=== PATIENT | female | born 1945 | race African-American/Black ===

== ENCOUNTER 2018-01-24 11:31 | Day surgery (SDC) | payer MEDICARE ==
[~2018-01-24 11:31] MED LIST: Acetaminophen TAB* 325 MG PO PRN; Buffered Lidocaine 0.9% SYRIN* 5 ML/SYR SYRINGE INTRADERM ONE
[2018-01-24] MEDS ORDERED: Lidocaine 1%* 5 ML VIAL ONE (13:51)
[2018-01-24] MEDS ORDERED: Phenylephrine 2.5% OPTH.SOL* 2 ML BTL ONE (13:51)
[2018-01-24] MEDS ORDERED: acetaZOLAMIDE TAB* 250 MG ONE (13:51)
[2018-01-24] MEDS ORDERED: Povidone Iodine 5% OPTH* 30 ML BTL ONE (13:51)
[2018-01-24] MEDS ORDERED: Ketorolac 0.5% OPHTH (NF) 0.5 % 5 ML BTL ONE (13:51)
[2018-01-24] MEDS ORDERED: Lidocaine 2% EPI 1:200000 MPF*10-20 ML VIAL ONE (13:51)
[2018-01-24] MEDS ORDERED: Cyclopentolate 1% OPTH.SOL* 2 ML BTL ONE (13:51)
[2018-01-24] MEDS ORDERED: Proparacaine 0.5% OPHTH.SOL* 15 ML BTL ONE (13:51)
[2018-01-24] MEDS ORDERED: Neomycin/Polymy/Dex OPTH.SUSP* MAXITROL 0.1% 5 ML ONE (13:51)
[2018-01-24] MEDS ORDERED: fentaNYL* 50 MCG/ML 2 ML VIAL (100 MCG VIAL) ONE (13:59)
[2018-01-24] MEDS ORDERED: Midazolam* 1 MG/ML 2 ML VIAL (2 MG) ONE (13:59)
[2018-01-24 14:57] VITALS: BP 155/65
--- NOTE | 2018-01-24 15:48 | OP ---
DATE OF OPERATION: 01/24/2018. DATE OF : 1945. SURGEON: Jeet Pena M.D. PREOPERATIVE DIAGNOSIS: Cataract right eye. POSTOPERATIVE DIAGNOSIS: Cataract right eye. OPERATIVE PROCEDURE: Extracapsular cataract extraction with intraocular lens implant right eye. PROCEDURE: The patient was brought to the operating room after being given 1/2% Alcaine with epineph rine drops in the preoperative area. The eye was prepped and draped in the usual sterile fashion. S terile drape and eyelid speculum were placed. Again, topical 1/2% Alcaine with epinephrine was given . A paracentesis incision was made at the 9 o'clock position with the No.75 blade. Clear cornea inc ision 2.2 x 2.2-mm was created at the 12 o'clock position starting at the anterior limbus using the 2 .2-mm keratome. The anterior chamber was irrigated with 0.4 mL of 1% non-preservative intracameral l idocaine and filled with DisCoVisc. A capsulorrhexis was completed using the cystotome and the Utrat a forceps. Hydrodissection was performed with balanced salt solution. The lens nucleus was removed w ith the Phacoemulsification handpiece without incident. Cortex was removed with the irrigation-aspir ation handpiece. The capsular bag was re-inflated using DisCoVisc and an [id number] 20 implant was inser harshad with the shooter. The irrigation-aspiration handpiece was used to remove all residual DisCoVisc. The eye was refilled with balanced salt solution and the wound checked and found to be watertight. Topical Maxitrol drops were given. [id number]/[facility] #: [id number]
== END 2018-01-24 15:11 | disposition home or self-care (01) ==
LOC: OREAST 11:31
PROVIDERS: ATTEND Specialist
DX: H25.811 Combined forms of age-related cataract, right eye (principal); H40.033 Anatomical narrow angle, bilateral; G70.00 Myasthenia gravis without (acute) exacerbation; H04.123 Dry eye syndrome of bilateral lacrimal glands; Z87.891 Personal history of nicotine dependence; R01.1 Cardiac murmur, unspecified; K21.9 Gastro-esophageal reflux disease without esophagitis; K58.9 Irritable bowel syndrome, unspecified; M19.90 Unspecified osteoarthritis, unspecified site; F32.9 Major depressive disorder, single episode, unspecified
CPT/HCPCS: A9270-GY; J2250; J3010; V2632

== ENCOUNTER 2018-02-07 12:08 | Day surgery (SDC) | payer MEDICARE ==
[~2018-02-07 12:08] MED LIST changes: -Acetaminophen TAB* 325 MG PO PRN
[2018-02-07] MEDS ORDERED: Propofol* 10 MG/ML 20 ML BTL IV PUSH ONE (14:46)
[2018-02-07] MEDS ORDERED: Lidocaine 2% PF * 5 ML VIAL ONE (14:46)
[2018-02-07] MEDS ORDERED: Phenylephrine 2.5% OPTH.SOL* 2 ML BTL ONE (15:03)
[2018-02-07] MEDS ORDERED: Cyclopentolate 1% OPTH.SOL* 2 ML BTL ONE (15:03)
[2018-02-07] MEDS ORDERED: Ketorolac 0.5% OPHTH (NF) 0.5 % 5 ML BTL ONE (15:03)
[2018-02-07] MEDS ORDERED: Proparacaine 0.5% OPHTH.SOL* 15 ML BTL ONE (15:03)
[2018-02-07] MEDS ORDERED: Neomycin/Polymy/Dex OPTH.SUSP* MAXITROL 0.1% 5 ML ONE (15:03)
[2018-02-07] MEDS ORDERED: Lidocaine 2% EPI 1:200000 MPF*10-20 ML VIAL ONE (15:03)
[2018-02-07] MEDS ORDERED: acetaZOLAMIDE TAB* 250 MG ONE (15:03)
[2018-02-07] MEDS ORDERED: Lidocaine 1%* 5 ML VIAL ONE (15:03)
[2018-02-07] MEDS ORDERED: Povidone Iodine 5% OPTH* 30 ML BTL ONE (15:03)
[2018-02-07 15:11] VITALS: BP 131/79
--- NOTE | 2018-02-07 16:27 | OP ---
DATE OF OPERATION: 02/07/2018. DATE OF : 1945. SURGEON: Jeet Pena M.D. PREOPERATIVE DIAGNOSIS: Cataract left eye. POSTOPERATIVE DIAGNOSIS: Cataract left eye. OPERATIVE PROCEDURE: Extracapsular cataract extraction with intraocular lens implant left eye. PROCEDURE: The patient was brought to the operating room after being given 1/2% Alcaine with epineph rine drops in the preoperative area. The eye was prepped and draped in the usual sterile fashion. S terile drape and eyelid speculum were placed. Again, topical 1/2% Alcaine with epinephrine was given . A paracentesis incision was made at the 3 o'clock position with the No.75 blade. Clear cornea inc ision 2.2 x 2.2-mm was created at the 6 o'clock position starting at the anterior limbus using the 2. 2-mm keratome. The anterior chamber was irrigated with 0.4 mL of 1% non-preservative intracameral li docaine and filled with DisCoVisc. A capsulorrhexis was completed using the cystotome and the Utrata forceps. Hydrodissection was performed with balanced salt solution. The lens nucleus was removed wi th the Phacoemulsification handpiece without incident. Cortex was removed with the irrigation-aspira tion handpiece. The capsular bag was re-inflated using DisCoVisc and an SN60WF 19.5 implant was inse rted with the shooter. The irrigation-aspiration handpiece was used to remove all residual DisCoVisc . The eye was refilled with balanced salt solution and the wound checked and found to be watertight. Topical Maxitrol drops were given. [id number]/[facility] #: [id number]
== END 2018-02-07 15:15 | disposition home or self-care (01) ==
LOC: OREAST 12:08
PROVIDERS: ATTEND Specialist
DX: H25.812 Combined forms of age-related cataract, left eye (principal); H40.033 Anatomical narrow angle, bilateral; G70.00 Myasthenia gravis without (acute) exacerbation; H04.123 Dry eye syndrome of bilateral lacrimal glands; I10 Essential (primary) hypertension; K21.9 Gastro-esophageal reflux disease without esophagitis; K58.9 Irritable bowel syndrome, unspecified; E05.00 Thyrotoxicosis with diffuse goiter without thyrotoxic crisis or storm; R06.02 Shortness of breath; J45.909 Unspecified asthma, uncomplicated; M19.90 Unspecified osteoarthritis, unspecified site
CPT/HCPCS: A9270-GY; J2704; V2632

== ENCOUNTER 2018-07-15 10:43 | Emergency (ER) | payer MEDICARE ==
[2018-07-15 11:56] VITALS: BP 188/97
--- NOTE | 2018-07-15 12:15 | UC ---
Eye Complaint HPI - HPI Summary HPI Summary: Patient is a 72 year old female, who present today to the urgent care with for left eye irritation and redness since morning today Also noticed some crustiness around eye when woke up. She felt that she might get a headache but she did not get one and denies any headache right now. She does have a history of glaucoma and had laser surgery done for that. Denies any contact lens use She also reports that she had had recent ear infections and pneumonia - was treated, has lingering cough which is productive of phlegm now. She was treated twice for her ear infection And finished her antibiotics 2 weeks ago. Continues to have cough productive of phlegm. No sick contacts . No skin rash. Denies any fever, chills, chest pain or shortness of breath . No diaphoresis. Denies any abdominal pain , nausea or vomiting , diarrhea or constipation. - History of Current Complaint Chief Complaint: UCEye Stated Complaint: L EYE IRRITATION, HEADACHE Time Seen by Provider: 07/15/18 11:59 Hx Obtained From: Patient Pain Intensity: 0 - Allergies/Home Medications Allergies/Adverse Reactions: Allergies Allergy/AdvReac Type Severity Reaction Status Date / Time codeine Allergy Dizziness Verified 07/15/18 11:39 HOSPITAL SHEETS Allergy See Comment Uncoded 02/07/18 12:35 TAPE Allergy See Comment Uncoded 02/07/18 12:35 Home Medications: Home Medications Ascorbic Acid TAB* [Vitamin C TAB*] 4,000 mg PO DAILY 07/15/18 [History Confirmed 07/15/18] Epinastine 0.05% OPHTH(NF) [Elestat 0.05% OPTH PAIGE (NF)] 1 drop BOTH EYES BID [History Confirmed 07/15/18] L.acidoph,Paracasei, B.lactis [Probiotic] 1 each PO DAILY 07/15/18 [History Confirmed 07/15/18] Potassium Chlor TAB* [Klor Con ER TAB*] 7.5 meq PO DAILY 07/15/18 [History Confirmed 07/15/18] PMH/Surg Hx/FS Hx/Imm Hx - Additional Past Medical History Additional PMH: Hypertension thyroid disorder Asthma as a child Previously Healthy: Yes - Surgical History Surgical History: Yes Surgery Procedure, Year, and Place: 1979 C SECTION, [place]. 2002 LUMBAR DISCECTOMY L5/S1 [place]. 1973 [place]SI[place]OMY, [place]. 1975 LAPOROTOMY FOR CYST ON FALLOPIAN TUBE,. 2015 HYSTERECTOMY/ BLADDER SLING [place]. [facility] [place]. 2018 - bilat cataract removal. - Family History Known Family History: Positive: Hypertension - Social History Alcohol Use: None Alcohol Amount: ONE DRINK A MONTH Substance Use Type: None Smoking Status (MU): Former Smoker Type: Cigarettes Amount Used/How Often: LESS THEN 1 PPD 35 YRS Have You Smoked in the Last Year: No When Did the Patient Quit Smoking/Using Tobacco: 1996 Review of Systems All Other Systems Reviewed And Are Negative: Yes Constitutional: Positive: Negative Skin: Positive: Negative Eyes: Positive: Drainage - Left eye, Eye Redness - Left eye ENT: Positive: Negative Respiratory: Positive: Cough - Cough productive of green phlegm. Negative: Shortness Of Breath Cardiovascular: Positive: Negative Gastrointestinal: Positive: Negative Genitourinary: Positive: Negative Motor: Positive: Negative Neurovascular: Positive: Negative Musculoskeletal: Positive: Negative Neurological: Positive: Negative Psychological: Positive: Negative Is Patient Immunocompromised?: No Physical Exam - Summary Physical Exam Summary: Physical Exam: Const: Appears well. No signs of apparent distress present. Alert and oriented x 3. Musculo: Walks with a normal gait. Head/Face: Atraumatic, normocephalic on inspection. Eyes: EOMI and PERRLA in both eyes. Left eye with conjunctival erythema without any significant discharge. ENT: Hearing normal, TM normal appearing bilaterally . No pharyngeal erythema or exudates, no lymphadenopathy noted Respiratory: Respirations are unlabored. Lungs -air entry equal, rhonchi noted bilaterally CVS: Regular rate and Rhythm, S1S2 normal , no murmurs identified. Extremities: Peripheral circulation is grossly normal. Pulses 2+ Abdomen : Soft non tender , nondistended , Bowel sounds present . No guarding , rebound tenderness or rigidity noted. Skin: No lesions or rash located on the upper extremities or on the lower extremities. Neuro: Cranial nerves II to XII intact, motor and sensory intact. DTR Intact bilaterally. Mood is normal. Affect is normal. Vital Signs: Initial Vital Signs Temp 97.5 F 07/15/18 11:46 Pulse 63 07/15/18 11:46 Resp 18 07/15/18 11:46 BP 188/97 07/15/18 11:46 Pulse Ox 96 07/15/18 11:46 Eye Complaint Course/Dx - Course Course Of Treatment: During the visit today, we discussed the findings and further plan. I will prescribe the medication to the pharmacy , Polytrim eyedrops. She said that she has Polytrim eyedrops that has not been used given to her by her learning support teacher so she might not have to further, it was E prescribed to the pharmacy. As her lungs don't sound great and she also has cough productive of phlegm, plan to treat it with Z-Melvin. Patient expressed understanding . - Differential Dx/Diagnosis Provider Diagnosis: Conjunctivitis, left eye, Pneumonia Discharge - Sign-Out/Discharge Documenting (check all that apply): Patient Departure All imaging exams completed and their final reports reviewed: No Studies - Discharge Plan Condition: Stable Disposition: HOME Prescriptions: Azithromyxin MELVIN (NF) [Z-Melvin (Zithromax) 250 mg tabs #6] 2 tab PO .TODAY, THEN 1 DAILY #6 tab Polymyx/Trimethoprim OPTH* [Polytrim OPHTH*] 1 drop LEFT EYE Q6H 5 Days #1 btl Patient Education Materials: Pneumonia (ED), Conjunctivitis (ED) Referrals: Vidhi Chan MD [Primary Care Provider] - 1 Week Additional Instructions: Please start taking the medication as prescribed to the pharmacy . Follow up with your primary care doctor in 1 week. Please follow up with ophthalmology if no improvement within a week Patients blood pressure slightly high in Urgent care today , plan follow up with PCP for better control Return to Urgent care / ER if symptoms get worse. - Billing Disposition and Condition Condition: STABLE Disposition: Home
== END 2018-07-15 12:35 | disposition home or self-care (01) ==
LOC: UCEAST 10:43
DX: J18.9 Pneumonia, unspecified organism (principal); H10.9 Unspecified conjunctivitis; I10 Essential (primary) hypertension; Z88.5 Allergy status to narcotic agent; Z91.048 Other nonmedicinal substance allergy status; Z87.891 Personal history of nicotine dependence
CPT/HCPCS: 99212; G0463

== ENCOUNTER 2018-07-20 13:27 | Emergency (ER) | payer MEDICARE ==
--- NOTE | 2018-07-20 13:39 | UC ---
Respiratory Complaint HPI - HPI Summary HPI Summary: 72 yo female presents with SOB and wheezing. She tells me that she had a cough and slight wheezing in April that lasted until early May at which time she saw her PCP for an appt and was dx'd with walking PNA. She was placed on anbx and felt better, but still had a persistent cough. She has seen her PCP twice since that time and has been told that the cough will "take time" to go away due to her age. She was seen here on 07/15 for an eye issue and noted at that time that her lungs had diffuse rhonchi and was placed on a zpak for this. She completed the zpak yesterday and has had no change in her wheezing or coughing. She has an albuterol inhaler that she uses with mild relief, but does not last long. Denies fever, chills, sinus symptoms, sore throat, chest pain, palpitations, abdominal pain, n/v. - History of Current Complaint Stated Complaint: SOB Time Seen by Provider: 07/20/18 13:39 Hx Obtained From: Patient Onset/Duration: Gradual Onset Timing: Constant Severity Initially: Mild Severity Currently: Mild Pain Intensity: 2 Pain Scale Used: 0-10 Numeric Character: Cough: Nonproductive - Allergies/Home Medications Allergies/Adverse Reactions: Allergies Allergy/AdvReac Type Severity Reaction Status Date / Time codeine Allergy Dizziness Verified 07/15/18 11:39 HOSPITAL SHEETS Allergy See Comment Uncoded 02/07/18 12:35 TAPE Allergy See Comment Uncoded 02/07/18 12:35 Home Medications: Home Medications Albuterol HFA INHALER* [Ventolin HFA Inhaler*] 2 puff INH Q6H PRN 07/20/18 [ History Confirmed 07/20/18] PMH/Surg Hx/FS Hx/Imm Hx - Additional Past Medical History Additional PMH: Allergies Glaucoma - Surgical History Surgical History: Yes Surgery Procedure, Year, and Place: 1979 C SECTION, [place]. 2002 LUMBAR DISCECTOMY L5/S1 [place]. 1972 TONSILECTOMY, [place]. 1975 LAPOROTOMY FOR CYST ON FALLOPIAN TUBE,. 2014 HYSTERECTOMY/ BLADDER SLING [place]. [address] [place] SURGERY FOR [place] [address] [place]'S OFFICE. 2018 - bilat cataract removal. - Family History Known Family History: Positive: Hypertension - Social History Lives: With Family Alcohol Use: None Alcohol Amount: ONE DRINK A MONTH Substance Use Type: None Smoking Status (MU): Former Smoker Type: Cigarettes Amount Used/How Often: LESS THEN 1 PPD 35 YRS Have You Smoked in the Last Year: No When Did the Patient Quit Smoking/Using Tobacco: 1996 Review of Systems All Other Systems Reviewed And Are Negative: Yes Constitutional: Positive: Negative Skin: Positive: Negative Eyes: Positive: Negative ENT: Positive: Negative Respiratory: Positive: Shortness Of Breath, Cough Cardiovascular: Positive: Negative Gastrointestinal: Positive: Negative Neurovascular: Positive: Negative Neurological: Positive: Negative Psychological: Positive: Negative Physical Exam - Summary Physical Exam Summary: GENERAL: NAD. WDWN. No pain distress. SKIN: No rashes, sores, lesions, or open wounds. HEENT: Head: AT/NC Eyes: Conjunctiva clear without inflammation or discharge. Ears: Hearing grossly normal. TMs intact, no bulging, erythema, or edema. Nose: Nasal mucosa pink and moist. NTTP maxillary and frontal sinus. Throat: Posterior oropharynx without exudates, erythema, or tonsillar enlargement. Uvula midline. NECK: Supple. Nontender. No lymphadenopathy. CHEST: Moderate to severe wheezing throughout with scattered rhonchi. No accessory muscle use. Breathing comfortably and in no distress. CV: RRR. Without m/r/g. Pulses intact. Cap refill <2seconds NEURO: Alert. PSYCH: Age appropriate behavior. Triage Information Reviewed: Yes Vital Signs: Vital Signs: Temp Pulse Resp BP Pulse Ox 98.2 F 72 18 186/92 96 07/20/18 13:38 07/20/18 13:38 07/20/18 13:38 07/20/18 13:38 07/20/18 13:38 Vital Signs Reviewed: Yes Re-Evaluation - Re-Evaluation First Eval Re-Evaluation Time: 15:22 Change: Improved Comment: Improved breathing. Less wheezing. s/p duoneb Second Eval Re-Evaluation Time: 15:56 Change: Improved Comment: Improved s/p albuterol neb Respiratory Course/Dx - Course Course Of Treatment: CXR: IMPRESSION: NO ACTIVE CARDIOPULMONARY DISEASE. Duoneb: improved s/p. Albuterol nebulizer: further improvment s/p with less wheezing. Pt was also given dexamethasone in the clinic. Suspect asthma exacerbation vs bronchitis. Will start her with prednisone and have her keep her f/u with her PCP next week for a recheck - Differential Dx/Diagnosis Provider Diagnosis: Bronchitis Discharge - Sign-Out/Discharge Documenting (check all that apply): Patient Departure All imaging exams completed and their final reports reviewed: Yes - Discharge Plan Condition: Stable Disposition: HOME Prescriptions: Benzonatate CAP* [Tessalon 100 MG CAP*] 100 mg PO TID PRN #15 cap PRN Reason: Cough predniSONE TAB* [Deltasone 20 MG TAB*] 40 mg PO DAILY #10 tab Patient Education Materials: Acute Bronchitis (ED) Referrals: Vidhi Chan MD [Primary Care Provider] - Additional Instructions: Your blood pressure was high at today's visit - please see your PCP within 4 weeks for a recheck Start taking the PREDNISONE tomorrow as you were given a dose in the clinic already today - Billing Disposition and Condition Condition: STABLE Disposition: Home
[2018-07-20] MEDS ORDERED: Albuterol/Ipratropium NEB.SOL* Albuterol 2.5 MG/Ipratropium 0.5 MG 3 ML INH ONE (13:56)
[2018-07-20] MEDS ORDERED: Dexamethasone TAB* 4 MG PO ONE (13:57)
[2018-07-20 15:10] VITALS: BP 171/94
[2018-07-20] MEDS ORDERED: Albuterol 2.5 MG/3 ML NEB.SOL* (0.083%) INH ONE (15:22)
== END 2018-07-20 16:00 | disposition home or self-care (01) ==
LOC: UCEAST 13:27
DX: J40 Bronchitis, not specified as acute or chronic (principal); R06.2 Wheezing; H40.9 Unspecified glaucoma; Z88.5 Allergy status to narcotic agent; Z91.048 Other nonmedicinal substance allergy status; Z87.891 Personal history of nicotine dependence
CPT/HCPCS: 71046; 99213; A9270-GY; G0463; J8540

== ENCOUNTER 2018-12-26 14:03 | Emergency (ER) | payer MEDICARE ==
[2018-12-26 14:14] VITALS: BP 170/82
--- NOTE | 2018-12-26 14:53 | UC ---
Skin Complaint HPI - HPI Summary HPI Summary: 72 yo female presents with left cheek skin lesion first noticed this morning. She tells me that she woke up this morning and noticed a very small wound to her left cheek with surrounding swelling. No pain. Unsure how it happened and is concerned it is a bug bite or shingles. She has not put any creams on it. Denies fever, chills, periorbital edema, or changes in linens, detergents, or perfumes. - History of Current Complaint Chief Complaint: UCSkin Time Seen by Provider: 12/26/18 14:53 Stated Complaint: SKIN ISSUE DIZZY Hx Obtained From: Patient Onset/Duration: Sudden Onset Onset Severity: Mild Current Severity: Mild Pain Intensity: 1 Pain Scale Used: 0-10 Numeric - Allergy/Home Medications Allergies/Adverse Reactions: Allergies Allergy/AdvReac Type Severity Reaction Status Date / Time Bleach (Sodium Hypochlorite) Allergy Severe Rash Verified 12/26/18 14:49 codeine Allergy Dizziness Verified 12/26/18 14:15 HOSPITAL SHEETS Allergy See Comment Uncoded 12/26/18 14:15 TAPE Allergy See Comment Uncoded 12/26/18 14:15 Home Medications: Home Medications methylPREDNISolone [Medrol] 2 mg PO BID 12/26/18 [History Confirmed 12/26/18] PMH/Surg Hx/FS Hx/Imm Hx - Additional Past Medical History Additional PMH: Allergies Cardiovascular History: Hypertension Respiratory History: Asthma - Surgical History Surgical History: Yes Surgery Procedure, Year, and Place: 1979 C SECTION, [facility] 2002 LUMBAR DISCECTOMY L5/S1 [place]. 1972 TONSILECTOMY, [place]. 1975 LAPOROTOMY FOR CYST ON FALLOPIAN TUBE,. 2015 HYSTERECTOMY/ BLADDER SLING [place]. [address]ERY [address] [address] [place]'[facility] OFFICE. 2018 - bilat cataract removal. - Family History Known Family History: Positive: Hypertension - Social History Occupation: Retired Lives: Alone Alcohol Use: None Alcohol Amount: ONE DRINK A MONTH Substance Use Type: None Smoking Status (MU): Former Smoker Type: Cigarettes Amount Used/How Often: LESS THEN 1 PPD 35 YRS Have You Smoked in the Last Year: No When Did the Patient Quit Smoking/Using Tobacco: 1996 Review of Systems All Other Systems Reviewed And Are Negative: Yes Constitutional: Positive: Negative Skin: Positive: Rash Eyes: Positive: Negative ENT: Positive: Negative Respiratory: Positive: Negative Cardiovascular: Positive: Negative Neurovascular: Positive: Negative Neurological: Positive: Negative Psychological: Positive: Negative Physical Exam - Summary Physical Exam Summary: GENERAL: NAD. WDWN. No pain distress. SKIN: LEFT CHEEK with 2mm superficial linear abrasion and perfectly symmetrical 5mm diameter area of mild superficial edema. No puncture wound, drainage, TTP, streaking, or bleeding. NECK: Supple. Nontender. No lymphadenopathy. CHEST: No accessory muscle use. Breathing comfortably and in no distress. CV: Pulses intact. Cap refill <2seconds NEURO: Alert. PSYCH: Age appropriate behavior. Triage Information Reviewed: Yes Vital Signs: Initial Vital Signs Temp 97.7 F 12/26/18 14:11 Pulse 79 12/26/18 14:11 Resp 18 12/26/18 14:11 BP 170/82 12/26/18 14:11 Pulse Ox 100 12/26/18 14:11 Vital Signs Reviewed: Yes Course/Dx - Course Course Of Treatment: I am unsure the cause of her left cheek lesion, but it appears to be contact in nature as it is a perfect symmetric [place] with central superficial abrasion. This does not appear consistent with shingles or an insect bite/spider bite. Will have her apply benadryl cream and monitor the area and f/u if does not improve within 2 days. - Diagnoses Provider Diagnosis: Abrasion Discharge - Sign-Out/Discharge Documenting (check all that apply): Patient Departure All imaging exams completed and their final reports reviewed: No Studies - Discharge Plan Condition: Stable Disposition: HOME Prescriptions: diPHENhydraMINE CREAM 2%(NF) [Benadryl X-Strength CREAM 2 % (NF)] 1 applic TOPICAL BID #1 tube Referrals: Vidhi Chan MD [Primary Care Provider] - Additional Instructions: If you develop a fever, shortness of breath, chest pain, new or worsening symptoms - please call your PCP or go to the ED immediately. Your blood pressure was high at todays visit. Please see your primary provider within 4 weeks for recheck and re-evaluation. If the area on your face worsens over the next 2 days, please be rechecked - Billing Disposition and Condition Condition: STABLE Disposition: Home
== END 2018-12-26 15:15 | disposition home or self-care (01) ==
LOC: UCEAST 14:03
DX: S00.81XA Abrasion of other part of head, initial encounter (principal); X58.XXXA Exposure to other specified factors, initial encounter; Y92.9 Unspecified place or not applicable; I10 Essential (primary) hypertension; Z87.891 Personal history of nicotine dependence; Z88.5 Allergy status to narcotic agent
CPT/HCPCS: 99212; G0463

== ENCOUNTER 2019-07-03 09:50 | Emergency (ER) | payer MEDICARE ==
--- OUTSIDE RECORDS SUMMARY | 2019-07-03 09:58 | XMS REPORT | Continuity of Care Document ---
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 Onset: 09/29/2015 Note: - memory concerns with normal testing in 2016 Sprain of ankle Pawan Castorena MD Onset: 03/27/2019 Social History Type Date Description Comments Sex Unknown ETOH Use Rarely consumes alcohol Tobacco Use Start: Unknown End: Patient is a former smoker quit in 1997, smoked Unknown for 35 yrs, 3/4 ppd Smoking Status Reviewed: 05/24/19 Patient is a former smoker quit in 1997, smoked for 35 yrs, 3/4 ppd Allergies, Adverse Reactions, Alerts Active Allergies Reaction Severity Comments Date Codeine nervous and dizzy 05/07/2007 Chlorine Contact dermatitis bleach or detergent used at 04/06/2018 hospital/sheets Medications Active Medications SIG Qnty Indications Ordering Date Provider Pyridostigmine [place] 1 tab by mouth 270tabs Jacquelyn Martínez, 08/13/2009 three times a M.D. 60mg Tablets day. Flonase 1 intranasal puff 3units Kai Mott 11/06/2007 50mcg/Act to each nostril Karan Alonzo Suspension daily Imvexxy Maintenance Unknown Pack Symbicort Inhale 2 Puffs By Unknown 160-4.5mcg/Act Mouth Twice A Day Aerosol Oxybutynin Chloride once a day Lakeisha Cavazos 5mg MD Patricia Tablets Vitamin C 3 by mouth every Unknown 500mg Capsules day Probiotic 1 by mouth every Unknown Capsules day Potassium Chloride take 75ml/ every Unknown other day 10Meq/100ML Solution Vitamin D (With 1 to 2 by mouth Unknown Calcium) each day 2000Unit Tablets Ventolin HFA Inhale 2 Puffs Unknown 108(90Base) Every 2 Hours as mcg/Act Aerosol Needed For Shortness Of Breath Levocetirizine Take 1 Tablet By Unknown Dihydrochloride Mouth Daily 5mg Tablets Montelukast Sodium 1 by mouth every Unknown 10mg day Tablets Multivitamins 1 by mouth every Unknown Capsules day Vitamin E 1 po daily Unknown 1000Unit Capsules Aloe Vera Juice 8 0z. daily as Unknown needed Patanol 1 GTT Both Eyes 3units Unknown 0.1% Solution bid Dyazide 1 PO qd 90caps Kai E. 37.5-25 Capsules Karan Alonzo Medications Administered in Office Medication SIG Qnty Indications Ordering Provider Date Depomedrol 40MG Zaida Romero M.D. 11/22/2018 Injection Depomedrol 40MG Nicholas Worthington M.D. 09/26/2011 Injection Immunizations CPT Code Status Date Vaccine Lot # [id number] Given 11/06/2007 Tdap - Tetanus/Diptheria/Acellular Pertussis [id number] Vital Signs Date Vital Result Comment 05/24/2019 2:45pm Height 61 inches 5'1" Weight 140.00 lb BP Systolic 142 mmHg BP Diastolic 84 mmHg Body Temperature 98.1 F BMI (Body Mass Index) 26.4 kg/m2 04/12/2019 2:39pm Height 61 inches 5'1" Weight 140.00 lb Heart Rate 66 /min BP Systolic 146 mmHg BP Diastolic 78 mmHg BMI (Body Mass Index) 26.4 kg/m2 Results Description No Information Available Procedures Date Code Description Status 05/06/2005 57196011 Colonoscopy Completed 05/13/2004 51465326 Colonoscopy Completed Medical Devices Description No Information Available Encounters Type Date Location Provider Dx Diagnosis Office Visit 04/12/2019 [facility] Pawan Castorena, S93.491A Sprain of other 11:30a at [place] ligament of right ankle, initial encounter Office Visit 04/12/2019 [facility] Jacquelyn Martínez, G70.00 Myasthenia gravis 2:00p [facility] Karan without (acute) exacerbation Office Visit 03/27/2019 [facility] Pawan Castorena S93.491A Sprain of other 2:45p at [place] ligament of right ankle, initial encounter Assessments Date Code Description Provider 05/24/2019 S93.491A Sprain of other ligament of right ankle, Pawan Castorena MD initial encounter 04/12/2019 G70.00 Myasthenia gravis without (acute) Jacquelyn Martínez M.D. exacerbation 04/12/2019 S93.491A Sprain of other ligament of right ankle, Pawan Castorena MD initial encounter 03/27/2019 S93.491A Sprain of other ligament of right ankle, Pawan Castorena MD initial encounter Plan of Treatment Future Appointment(s):10/18/2019 1:30 pm - Jacquelyn Martínez M.D. at [facility]05/24/2019 - Pawan Castorena [id number] Sprain of other ligament of right ankle, initial encounterFollow up:Follow Up: As needed Functional Status Description No Information Available Mental Status Description No Information Available Referrals Description No Information Available
--- OUTSIDE RECORDS SUMMARY | 2019-07-03 09:58 | XMS REPORT | Continuity of Care Document ---
:1945 External Reference #:[id number] Author Name Maria Guadalupe Bull O.D. Address [address] [place] [address] Care Team Providers Name Role Phone Vidhi Boyd M.D. - Family Medicine Care Team Information Body And Frame Technician Jacquelyn Martínez M.D. - Neurology Care Team Information Body And Frame Technician [phone] Lakeisha Cavazos M.D. - Obstetrics Care Team Information Body And Frame Technician [phone] & Gynecology Problems Active Problems Provider Date Graves' disease Onset: Sinusitis Maria Guadalupe Bull O.D. Onset: 11/09/2015 Short of breath on exertion Onset: Cystourethrocele Onset: Essential hypertension Onset: Mild depression Onset: Numbness and tingling sensation of skin Onset: Note: hands Nuclear senile cataract Maria Guadalupe Bull O.D. Onset: 11/12/2015 Myasthenia gravis Maria Guadalupe Bull O.D. Onset: 11/12/2015 Bilateral narrow angle of anterior chamber Maria Guadalupe Bull O.D. Onset: of eyes Chronic allergic conjunctivitis Maria Guadalupe Bull O.D. Onset: 11/11/2016 Tear film insufficiency Maria Guadalupe Bull O.D. Onset: 11/11/2016 Injury of conjunctiva and corneal abrasion Melanie Brennan O.D. Onset: 2016 without foreign body, left eye, initial encounter Combined form of senile cataract Jeet Pena M.D. Onset: 01/09/2018 Presence of intraocular lens Jeet Pena M.D. Onset: 01/25/2018 Asthma Onset: Arthritis Onset: Acid reflux Onset: Social History Type Date Description Comments Sex Unknown ETOH Use Occasionally consumes alcohol Tobacco Use Start: Unknown End: Patient is a former smoker Unknown Recreational Drug Use Denies Drug Use Smoking Status Reviewed: 06/03/19 Patient is a former smoker Allergies, Adverse Reactions, Alerts Active Allergies Reaction Severity Comments Date Codeine Light Headed/Jittery Severe 11/12/2014 Seasonal Severe 06/03/2019 Environmental Severe 06/03/2019 Animals Severe 06/03/2019 Medications Active Medications SIG Qnty Indications Ordering Date Provider Restasis 1 drops both 180units H04.123 Maria Guadalupe Parker 03/01/2019 0.05% Emulsion eyes twice a day Erica Bull Epinastine HCL 1 drop twice a 5ml Maria Guadalupe Parker 02/26/2018 0.05% day in each eye Erica Bull Solution Systane 1 drop both eyes Jeet Parker 11/13/2016 0.4-0.3% Gel twice a day Karan Pena Triamterene/Hydrochlor Unknown othiazide 37.5-25mg Capsules Potassium Chloride ER Unknown 8Meq Capsules ER Aloe Vera Juice Unknown Liquid Pyridostigmine [place] Unknown 60mg Tablets Vitamin E Water Unknown Soluble 1000Unit Capsules Centrum Silver Ultra Unknown Womens Tablets Flonase Allergy Relief Unknown 50mcg/Act Suspension Montelukast Sodium TK 1 T PO D Unknown 10mg Tablets Oxybutynin Chloride Unknown 5mg Tablets Symbicort Unknown 80-4.5mcg/Act Aerosol Levocetirizine Deb [place] Dihydrochloride M.DGem 5mg Tablets Albuterol Sulfate HFA Inhale 2 Puffs Unknown By Mouth Every 108(90Base) mcg/Act 4-6 Hours as Aerosol Needed For Shortness Of Breath History Medications Restasis 1 drops both 180units H04.123 Maria Guadalupe Parker 03/01/2019 - 0.05% eyes twice a Erica Bull 03/24/2019 day Immunizations Description No Information Available Vital Signs Date Vital Result Comment 03/25/2019 2:34pm BP Systolic 164 mmHg BP Diastolic 80 mmHg Heart Rate 68 /min Respiratory Rate 16 /min 11/21/2016 3:21pm BP Systolic 158 mmHg BP Diastolic 80 mmHg Heart Rate 60 /min Respiratory Rate 16 /min Results Description No Information Available Procedures Date Code Description Status 03/25/2019 40309 Remove Secondary Cataract, Laser (Yag) Completed 03/01/2019 95255 Determination Of Refractive State Completed 03/01/2019 55188 Est Patient Comprehensive Exam Completed Medical Devices Description No Information Available Encounters Description No Information Available Assessments Date Code Description Provider 06/03/2019 H04.123 Dry eye syndrome of bilateral lacrimal Maria Guadalupe Bull O.D. glands 06/03/2019 H40.033 Anatomical narrow angle, bilateral Maria Guadalupe Bull O.D. 06/03/2019 H10.45 Other chronic allergic conjunctivitis Maria Guadalupe Bull O.D. 06/03/2019 Z96.1 Presence of intraocular lens Maria Guadalupe Bull O.D. 03/25/2019 H26.491 Other secondary cataract, right eye Jeet Pena M.D. 03/25/2019 H04.123 Dry eye syndrome of bilateral lacrimal Jeet Pena M.D. glands 03/25/2019 H10.45 Other chronic allergic conjunctivitis Jeet Pena M.D. 03/25/2019 H40.033 Anatomical narrow angle, bilateral Jeet Pean M.D. 03/25/2019 Z96.1 Presence of intraocular lens Jeet Pena M.D. 03/01/2019 H04.123 Dry eye syndrome of bilateral lacrimal Maria Guadalupe Bull O.D. glands 03/01/2019 H26.491 Other secondary cataract, right eye Maria Guadalupe Bull O.D. 03/01/2019 H10.45 Other chronic allergic conjunctivitis Maria Guadalupe Bull O.D. 03/01/2019 H40.033 Anatomical narrow angle, bilateral Maria Guadalupe Bull O.D. 03/01/2019 Z96.1 Presence of intraocular lens Maria Guadalupe Bull O.D. Plan of Treatment 06/03/2019 - Maria Guadalupe Bull O.D.H04.123 Dry eye syndrome of bilateral lacrimal glandsComments:Smoking can increase the risk of developing or worsening any eye related disease, as well as affect your overall health. If you are a smoker, we strongly recommend that you quit.If you are not a smoker, we strongly recommend that you do not start. CONTINUE TO USE RESTASIS 2XDAYCONTINUE TO USE ARTIFICIAL TEARS NEEDEDCONTINUE TO USE HOT COMPRESS FOR 5-10 MINUTESFollow up:6 Month Follow Up /CEE You can expect to have your eyes dilated at your next visit. If Dr. Bullorders any additional testing, it may require extra time. We recommend that you bring sunglasses, asdilation drops often make you light sensitive until they wear off. We always recommend you bring someone to drive you home if you are uncomfortable driving with your eyes dilated. If you have any questions before your next visit, feel free to call our office at .H40.033 Anatomical narrow angle, zboddfxrhS96.45 Other chronic allergic [id number] Presence of intraocular lensComments:The artificial lens implants in both eyes appear to be stable at this time. Functional Status Description No Information Available Mental Status Description No Information Available Referrals Description No Information Available
[2019-07-03 10:09] VITALS: BP 163/85
--- NOTE | 2019-07-03 10:20 | UC ---
Eye Complaint HPI - HPI Summary HPI Summary: 73 yo female presents with right eye redness. She tells me that she woke up this morning and noticed some redness to her right lower eye. She mentions she has been blowing her nose and sneezing more recently. Denies trauma, pain, itchiness, drainage, or vision changes. Does not wear contacts. No FB sensation. - History of Current Complaint Chief Complaint: UCEye Stated Complaint: EYE ISSUE Time Seen by Provider: 07/03/19 10:20 Hx Obtained From: Patient Onset/Duration: Sudden Onset Severity Currently: None Pain Intensity: 0 - Allergies/Home Medications Allergies/Adverse Reactions: Allergies Allergy/AdvReac Type Severity Reaction Status Date / Time codeine Allergy Dizziness Verified 07/03/19 10:10 HOSPITAL SHEETS Allergy See Comment Uncoded 07/03/19 10:10 TAPE Allergy See Comment Uncoded 07/03/19 10:10 Home Medications: Home Medications Epinastine 0.05% OPHTH(NF) [Elestat 0.05% OPTH PAIGE (NF)] 1 drop BOTH EYES BID [History Confirmed 07/03/19] Glucosamine Sulfate 1 cap PO DAILY 07/03/19 [History Confirmed 07/03/19] Methylsulfonylmethane [MSM] 1 tab PO DAILY 07/03/19 [History Confirmed 07/03/19] Oxybutynin Chloride [Ditropan Xl] 1 tab PO DAILY 07/03/19 [History Confirmed 11/16] PMH/Surg Hx/FS Hx/Imm Hx - Additional Past Medical History Additional PMH: Urinary incontinence Cardiovascular History: Hypertension Respiratory History: COPD, Asthma - Surgical History Surgical History: Yes Surgery Procedure, Year, and Place: 1979 C SECTION, [facility], [place]. 2002 LUMBAR DISCECTOMY L5/S1 [place]. 1972 TONSILECTOMY, [place]. 1975 LAPOROTOMY FOR CYST ON FALLOPIAN TUBE,. 2015 HYSTERECTOMY/ [facility]. [address] [place]. 2018 - bilat cataract removal. - Family History Known Family History: Positive: Hypertension - Social History Occupation: Employed Full-time Lives: With Family Alcohol Use: Occasionally Alcohol Amount: ONE DRINK A MONTH Substance Use Type: None Smoking Status (MU): Former Smoker Type: Cigarettes Amount Used/How Often: LESS THEN 1 PPD 35 YRS Have You Smoked in the Last Year: No When Did the Patient Quit Smoking/Using Tobacco: 1996 Review of Systems All Other Systems Reviewed And Are Negative: No Constitutional: Positive: Negative Skin: Positive: Negative Eyes: Positive: Eye Redness ENT: Positive: Negative Respiratory: Positive: Negative Neurological: Positive: Negative Psychological: Positive: Negative Physical Exam - Summary Physical Exam Summary: GENERAL: WDWN. No pain distress. SKIN: No rashes, sores, lesions, or open wounds. HEENT: Head: AT/NC Eyes: EOM intact. PERRLA. RIGHT EYE: Small subconjunctival hemorrhage at the inferior sclera. Conjunctiva without erythema or inflammation. No discharge. Nose: NTTP maxillary and frontal sinus. NECK: Supple. Nontender. No lymphadenopathy. CHEST: No accessory muscle use. Breathing comfortably and in no distress. CV: Pulses intact. Cap refill <2seconds NEURO: Alert. PSYCH: Age appropriate behavior. Vital Signs: Initial Vital Signs Temp 98.1 F 07/03/19 10:00 Pulse 83 07/03/19 10:00 Resp 16 07/03/19 10:00 BP 163/85 07/03/19 10:00 Pulse Ox 98 07/03/19 10:00 Eye Complaint Course/Dx - Course Course Of Treatment: Suspect subconjunctival hemorrhage. Advised to monitor the eye and if symptoms worsen to be rechecked - Differential Dx/Diagnosis Provider Diagnosis: Subconjunctival hemorrhage Discharge ED - Sign-Out/Discharge Documenting (check all that apply): Patient Departure All imaging exams completed and their final reports reviewed: No Studies - Discharge Plan Condition: Stable Disposition: HOME Patient Education Materials: Subconjunctival Hemorrhage (ED) Referrals: Vidhi Chan MD [Primary Care Provider] - Additional Instructions: If you develop a fever, shortness of breath, chest pain, new or worsening symptoms - please call your PCP or go to the ED immediately. Your blood pressure was high at todays visit. Please see your primary provider within 4 weeks for recheck and re-evaluation. If you notice drainage, swelling, itching, or crusting to your eye - please be rechecked - Billing Disposition and Condition Condition: STABLE Disposition: Home
== END 2019-07-03 10:43 | disposition home or self-care (01) ==
LOC: UCEAST 09:50
DX: H11.31 Conjunctival hemorrhage, right eye (principal); J44.9 Chronic obstructive pulmonary disease, unspecified; I10 Essential (primary) hypertension; Z87.891 Personal history of nicotine dependence; Z88.5 Allergy status to narcotic agent; Z91.09 Other allergy status, other than to drugs and biological substances
CPT/HCPCS: 99211; G0463

== ENCOUNTER 2023-09-09 12:13 | Inpatient (IN) ==
[2023-09-09] MEDS ORDERED: Albuterol HFA INHALER 8 gm MDI INH ONE (12:48)
[2023-09-09 13:10] LABS: ABS Basophils 0.1 10^3/uL (0.0-0.1); ABS Eosinophils 0.3 10^3/uL (0.0-0.5); ABS Lymphocytes 1.7 10^3/uL (1.0-4.8); ABS Monocytes 0.5 10^3/uL (0.0-0.9); ABS Neutrophils 3.3 10^3/uL (1.5-7.6); Eosinophil % 4.6 %; Hematocrit 39.7 % (35-45); Hemoglobin 13.1 g/dL (11.5-14.3); Lymphocyte % 29.6 %; Mean Corpuscular Hemoglobin 28.1 pg (27-33); Mean Corpuscular Volume 85.1 fL (80-97); Mean Platelet Volume 8.6 fL (7.5-11.2); Platelet Count 290 10^3/uL (150-450); Red Blood Count 4.66 10^6/uL (3.63-4.92); Red Cell Distribution Width 15.4 % (12-17); White Blood Count 5.7 10^3/uL (3.8-11.8)
[2023-09-09] MEDS: Dextrose 50% Syringe 50 ml 25 GM/50 ML SYRINGE IV PUSH ONE (13:21)
[2023-09-09] MEDS: Albuterol HFA INHALER 8 gm MDI INH ONE (13:25)
[2023-09-09 13:27] LABS: Albumin 4.1 g/dL (3.2-5.2); Albumin/Globulin Ratio 1.6 (1-3); Calcium 10.9 mg/dL (8.6-10.3); Creatinine, Serum 0.83 mg/dL (0.51-0.95); Direct Bilirubin 0.2 mg/dL (0.03-0.18); Globulin 2.6 g/dL (2-4); HDL Cholesterol 48.7 mg/dL; Indirect Bilirubin 0.5 mg/dL (0.3-1.0); Potassium 3.4 mmol/L (3.5-5.0); Total Bilirubin 0.7 mg/dL (0.2-1.0); Total Protein 6.7 g/dL (6.4-8.9); eGFR CKD-EPI 73.5 (>60)
[2023-09-09] MEDS: Iodixanol (CONTRAST) 320 MG/ML 100 ML SDV IV ONE (13:37)
[2023-09-09 13:43] LABS: Activated Partial Thrombo Time 55.2 seconds (26.0-38.0); INR 1.07 (0.83-1.13)
[2023-09-09 14:01] LABS: Urine Appearance Clear; Urine Bilirubin Negative (Negative); Urine Blood Negative (Negative); Urine Color Light-Yellow; Urine Glucose Negative (Negative); Urine Ketones Negative (Negative); Urine Nitrite Negative (Negative); Urine Protein Negative (Negative); Urine Specific Gravity 1.006 (1.002-1.030); Urine Urobilinogen Negative (Negative); Urine pH 7.5 (5.0-8.0)
[2023-09-09] MEDS: Albuterol/Ipratropium NEB.SOL (2.5/0.5 MG) 3 ML NEB.SOLN INH ONE (14:01)
[2023-09-09] MEDS: NS 0.9% 1000 ml BAG 1,000 ML IV ONE (18:15)
[2023-09-09] MEDS ORDERED: Albuterol HFA INHALER 8 gm MDI INH PRN (20:31)
[2023-09-09] MEDS: EPINASTINE 0.05% BOTH EYES SCH (21:35)
[2023-09-09] MEDS: Mometasone/Formoter 200/5 MDI INH SCH (21:39)
[2023-09-10] MEDS: Enoxaparin 40 MG/0.4 ML SYR SUBCUT SCH (00:33)
[2023-09-10 05:40] LABS: ABS Eosinophils 0.3 10^3/uL (0.0-0.5); ABS Lymphocytes 1.5 10^3/uL (1.0-4.8); ABS Monocytes 0.5 10^3/uL (0.0-0.9); ABS Neutrophils 3.1 10^3/uL (1.5-7.6); ABS Nucleated RBC 0.01 10^3/ul; Eosinophil % 4.7 %; Hematocrit 37.8 % (35-45); Hemoglobin 12.8 g/dL (11.5-14.3); Lymphocyte % 27.6 %; Mean Corpuscular Hemoglobin 28.7 pg (27-33); Mean Corpuscular Hgb Conc 33.8 g/dL (31-36); Mean Corpuscular Volume 84.8 fL (80-97); Mean Platelet Volume 8.4 fL (7.5-11.2); Nucleated Red Blood Cells % 0.2 %/100WBC (0.0-0.8); Platelet Count 275 10^3/uL (150-450); Red Blood Count 4.45 10^6/uL (3.63-4.92); Red Cell Distribution Width 15.8 % (12-17); White Blood Count 5.4 10^3/uL (3.8-11.8)
[2023-09-10 05:58] LABS: Calcium 9.9 mg/dL (8.6-10.3); Creatinine, Serum 0.91 mg/dL (0.51-0.95); Magnesium 1.9 mg/dL (1.9-2.7); Potassium 3.4 mmol/L (3.5-5.0); eGFR CKD-EPI 65.8 (>60)
[2023-09-10] MEDS: Potassium EFFERVES 25 meq TAB PO ONE (08:47)
[2023-09-10] MEDS: KCL 20 MEQ/100 ML IVPREMIX 20 MEQ/100 ML BAG IV SCH (08:54)
[2023-09-10] MEDS: NS 0.9% 500 ml BAG 500 ML IV SCH (11:29)
[2023-09-10] MEDS: EPINASTINE 0.05% BOTH EYES SCH (11:58)
[2023-09-10] MEDS: Fluticasone NASAL SPRAY 50MCG 16 gm SPRAY BTL INTRANASAL SCH (15:24)
[2023-09-10] MEDS: FESOTERODINE 8 MG PO SCH (15:25)
[2023-09-10] MEDS: DIPHENHYDRAMINE 2% TOPICAL SCH (21:15)
[2023-09-10] MEDS: Famotidine IV 10 MG/ML 2 ml VIAL (20 mg) IV SLOW PU ONE (21:17)
[2023-09-11 06:38] LABS: ABS Eosinophils 0.3 10^3/uL (0.0-0.5); ABS Lymphocytes 1.5 10^3/uL (1.0-4.8); ABS Monocytes 0.5 10^3/uL (0.0-0.9); ABS Nucleated RBC 0.01 10^3/ul; Eosinophil % 5.9 %; Hemoglobin 12.3 g/dL (11.5-14.3); Lymphocyte % 28.9 %; Mean Corpuscular Hemoglobin 28.4 pg (27-33); Mean Corpuscular Hgb Conc 33.3 g/dL (31-36); Mean Corpuscular Volume 85.3 fL (80-97); Mean Platelet Volume 8.6 fL (7.5-11.2); Nucleated Red Blood Cells % 0.2 %/100WBC (0.0-0.8); Platelet Count 283 10^3/uL (150-450); Red Blood Count 4.33 10^6/uL (3.63-4.92); Red Cell Distribution Width 15.7 % (12-17); White Blood Count 5.4 10^3/uL (3.8-11.8)
[2023-09-11 06:55] LABS: Calcium 9.7 mg/dL (8.6-10.3); Creatinine, Serum 0.97 mg/dL (0.51-0.95); Magnesium 1.8 mg/dL (1.9-2.7); Potassium 3.8 mmol/L (3.5-5.0); eGFR CKD-EPI 60.9 (>60)
[2023-09-11] MEDS ORDERED: POTASSIUM GLUCONATE PO SCH (09:00)
[2023-09-11] MEDS: Potassium Chlor 20 meq TAB.ER PO ONE (10:46)
[2023-09-11] MEDS: Magnesium Sulfate 2 gm BAG 2 GM/50 ML BAG IVPB ONE (10:48)
[2023-09-12 06:42] LABS: Calcium 9.6 mg/dL (8.6-10.3); Creatinine, Serum 0.85 mg/dL (0.51-0.95); Potassium 3.8 mmol/L (3.5-5.0); eGFR CKD-EPI 71.4 (>60)
[2023-09-12 09:57] VITALS: BP 173/79
== END 2023-09-12 14:10 | disposition home or self-care (01) | DRG 66 ==
LOC: ED 12:13 → EDHOLD 18:32 → SUATTDRO 18:32 → MEDTELE 09-10 16:29
PROVIDERS: ADMIT Internal Medicine; ATTEND Internal Medicine

== ENCOUNTER 2023-12-28 11:04 | Observation (INO) ==
[2023-12-28 11:38] LABS: Activated Partial Thrombo Time 51.9 seconds (26.0-38.0); INR 0.91 (0.83-1.13)
[2023-12-28 11:41] LABS: ABS Eosinophils 0.2 10^3/uL (0.0-0.5); ABS Lymphocytes 1.9 10^3/uL (1.0-4.8); ABS Monocytes 0.5 10^3/uL (0.0-0.9); ABS Neutrophils 3.8 10^3/uL (1.5-7.6); ABS Nucleated RBC 0.01 10^3/ul; Eosinophil % 2.6 %; Hematocrit 38.7 % (35-45); Hemoglobin 13.2 g/dL (11.5-14.3); Lymphocyte % 29.6 %; Mean Corpuscular Hemoglobin 29.1 pg (27-33); Mean Corpuscular Hgb Conc 34.1 g/dL (31-36); Mean Corpuscular Volume 85.3 fL (80-97); Mean Platelet Volume 8.4 fL (7.5-11.2); Nucleated Red Blood Cells % 0.1 %/100WBC (0.0-0.8); Platelet Count 251 10^3/uL (150-450); Red Blood Count 4.54 10^6/uL (3.63-4.92); Red Cell Distribution Width 16.7 % (12-17); White Blood Count 6.4 10^3/uL (3.8-11.8)
[2023-12-28] MEDS ORDERED: Iodixanol 320 (CONTRAST) 100 ML SDV IV ONE (11:45)
[2023-12-28 12:08] LABS: Albumin 4.7 g/dL (3.2-5.2); Albumin/Globulin Ratio 2.2 (1-3); Calcium 11.3 mg/dL (8.6-10.3); Creatinine, Serum 1.04 mg/dL (0.51-0.95); Direct Bilirubin 0.1 mg/dL (0.03-0.18); Globulin 2.1 g/dL (2-4); HDL Cholesterol 65.5 mg/dL; Indirect Bilirubin 0.6 mg/dL (0.3-1.0); Potassium 3.3 mmol/L (3.5-5.0); Total Bilirubin 0.7 mg/dL (0.2-1.0); Total Protein 6.8 g/dL (6.4-8.9)
[2023-12-28] MEDS: Enoxaparin 40 MG/0.4 ML SYR SUBCUT SCH (17:36)
[2023-12-28] MEDS: Mometasone/Formoter 200/5 MDI INH SCH (19:25)
[2023-12-28 22:57] LABS: Urine Appearance Clear; Urine Bilirubin Negative (Negative); Urine Blood Negative (Negative); Urine Color Light-Yellow; Urine Glucose Negative (Negative); Urine Ketones Negative (Negative); Urine Nitrite Negative (Negative); Urine Protein Negative (Negative); Urine Specific Gravity 1.042 (1.002-1.030); Urine Urobilinogen Negative (Negative); Urine pH 6.5 (5.0-8.0)
[2023-12-28 23:49] LABS: Urine Bacteria Absent /HPF (Absent); Urine Red Blood Cell Absent /HPF (0-Trace); Urine Squamous Epithelial Cell Present /HPF (Absent); Urine White Blood Cell Trace(0-5/hpf) /HPF (0-Trace)
[2023-12-29] MEDS: Aspirin EC 81 mg TAB.EC (enteric coated) PO SCH (08:00)
[2023-12-29] MEDS: Potassium Chlor 20 meq TAB.ER PO ONE (18:50)
[2023-12-30] MEDS: Polyethyl Glycol/Propylene Gly OPHTH.SOLN BOTH EYES PRN (02:11)
[2023-12-30 10:16] VITALS: BP 140/68
== END 2023-12-30 12:37 | disposition home or self-care (01) ==
LOC: EDHOLD 11:04 → ED 11:04 → MEDTELE 18:12
PROVIDERS: ADMIT Hospitalist; ATTEND Hospitalist